=== PATIENT | male | born 1950 | race Caucasian/White ===

== ENCOUNTER 2016-04-23 16:58 | Observation (INO) | payer MEDICARE, BC ==
[~2016-04-23] VITALS: Ht 177.8 cm; Wt 78.6 kg
[2016-04-23 17:12] VITALS: BP 123/85; Ht 177.8 cm; Wt 78.6 kg
--- NOTE | 2016-04-23 17:25 | NUR ---
PATIENT ARRIVED FROM ADMISSIONS AMBULATING. TO 2116. ASSESSMENT DONE. PLACED ON TELEMETRY WITH RATE OF 140 AND UCAF. WILL CONTINUE TO MONITOR.
[2016-04-23] MEDS ORDERED: CARDIZEM CD240 MG (17:30)
[2016-04-23] MEDS ORDERED: PROTONIX40 MG PO (17:30)
[2016-04-23] MEDS ORDERED: LIPITOR40 MG PO (17:31)
[2016-04-23 17:52] LABS: BASOPHILS 0.2 % (0.0-2.0); EOSINOPHILS 1.2 % (0-7); HEMATOCRIT 47.6 % (42.0-54.0); HEMOGLOBIN 16.5 g/dL (13.5-17.5); IMMATURE GRANULOCYTES 0.3 % (0-5); LYMPHOCYTES 26.6 % (15-50); MCH 33.5 pg (26.0-34.0); MCHC 34.7 g/dL (31.0-37.0); MCV 96.7 fL (80.0-100.0); MEAN PLATELET VOLUME 9.1 fL (7.4-10.4); MONOCYTES 13.6 % (2-11); NEUTROPHILS 58.1 % (40-80); RBC 4.92 10x6/uL (4.20-6.10); RDW 13.1 % (11.5-14.5); WBC 9.5 10x3/uL (4.8-10.8)
[2016-04-23 17:53] LABS: PLATELET COUNT 287 10x3/uL (130-400)
[2016-04-23 18:31] LABS: CALC OSMOLALITY 282 mosm/kg (275-300); CALCIUM 9.6 mg/dL (8.5-10.1); CARBON DIOXIDE 28.2 mmol/L (21.0-32.0); CHLORIDE - SERUM 99 mmol/L (98-107); GLUCOSE 108 mg/dL (74-106); POTASSIUM - SERUM 3.3 mmol/L (3.5-5.1); SODIUM 141 mmol/L (136-145); THYROID STIMULATING HORMONE 4.28 uIU/mL (0.36-3.74); UREA NITROGEN 15 mg/dL (7-18); eGFR NON AFRICAN AMERICAN 79 mL/min (90-120)
--- NOTE | 2016-04-23 19:05 | NUR ---
INITIAL ROUNDS MADE. PT SITTING UP INBED WATCHING TV. IV SITED TO LEFT WRIST 22G [id number]. IVF INITIATED, ANTIBIOTIC HUNG, AND SOLUCORTEF GIVEN ORDERED. PT IS IN SR 71, PT REQUESTING NO CARDIZEM GTT UNLESS CONVERTS BACK TO AFIB.
[2016-04-23 20:00] VITALS: BP 136/97
[2016-04-24] VITALS: BP 117/71
--- NOTE | 2016-04-24 00:44 | NUR ---
[employer] AT BEDSIDE FOR VS, NEEDS ADDRESSED. CALL LIGHT IN REACH. WILL CONT TO MONITOR.
[2016-04-24 04:00] VITALS: BP 118/80
--- NOTE | 2016-04-24 05:11 | NUR ---
SITTING UP IN BED, NO NEEDS OR C/O. CONT TO MONITOR.
[2016-04-24 05:54] LABS: BASOPHILS 0.2 % (0.0-2.0); EOSINOPHILS 0 % (0-7); HEMATOCRIT 41.2 % (42.0-54.0); HEMOGLOBIN 13.9 g/dL (13.5-17.5); IMMATURE GRANULOCYTES 0.2 % (0-5); LYMPHOCYTES 26.5 % (15-50); MCH 32.6 pg (26.0-34.0); MCHC 33.7 g/dL (31.0-37.0); MCV 96.7 fL (80.0-100.0); MEAN PLATELET VOLUME 9.5 fL (7.4-10.4); NEUTROPHILS 64.1 % (40-80); PLATELET COUNT 258 10x3/uL (130-400); RBC 4.26 10x6/uL (4.20-6.10)
[2016-04-24 06:07] LABS: CALC OSMOLALITY 278 mosm/kg (275-300); CALCIUM 9.2 mg/dL (8.5-10.1); CARBON DIOXIDE 25.3 mmol/L (21.0-32.0); CHLORIDE - SERUM 101 mmol/L (98-107); GLUCOSE 148 mg/dL (74-106); SODIUM 137 mmol/L (136-145); UREA NITROGEN 18 mg/dL (7-18); eGFR NON AFRICAN AMERICAN 79 mL/min (90-120)
[2016-04-24 06:10] LABS: POTASSIUM - SERUM 4.6 mmol/L (3.5-5.1)
[2016-04-24 06:14] LABS: WBC 5.8 10x3/uL (4.8-10.8)
[2016-04-24 07:43] VITALS: BP 138/84
--- NOTE | 2016-04-24 09:34 | NUR ---
TELEMETRY SR. IV PATENT. CALL LIGHT IN REACH. WILL CONT. PLAN OF CARE.
[2016-04-24 11:17] VITALS: BP 124/72
[2016-04-24] MEDS ORDERED: CHERATUSSIN AC473 ML PO (13:07)
[2016-04-24] MEDS ORDERED: BETAPACE 120 M120 MG PO (13:08)
[2016-04-24] MEDS ORDERED: STERAPRED DS 1210 MG PO (13:08)
[2016-04-24] MEDS ORDERED: CEFZIL250 MG PO (13:08)
[2016-04-24] MEDS ORDERED: CARDIZEM CD240 MG PO (15:08)
--- NOTE | 2016-04-24 15:27 | NUR ---
NEW DISCHARGE MEDICATION PRESCRIPTIONS WERE PRINTED BUT NOT SIGNED BY DR. COX. I OFFERED TO CALL PRESCRIPTIONS TO PHARMACY BUT PATIENT WANTED TO TAKE PRESCRIPTIONS TO DR. CXO'S OFFICE FOR HIM TO SIGN AND GET A PRESCRIPTION FOR THE GUAF/CODEINE THAT DID NOT PRINT.
--- NOTE | 2016-04-24 15:30 | NUR ---
REFUSED SCD'S. UP AD SUSANNA
--- NOTE | 2016-04-24 15:33 | NUR ---
IV AND TELEMETRY DCD. DC PLANS GIVEN. UNDERSTANDING VOICED. ESCORTED TO CAR BY W/C.
--- NOTE | 2016-04-25 14:33 | CN ---
PATIENT NAME:KALYAN NAVAS MEDICAL RECORD: [id number] : 46 LOCATION:D. D.2117 ADMIT DATE: 04/23/16 ACCOUNT: [id number] CONSULTING PHYSICIAN: MARK ANTHONY HANSEN MD REFERRING PHYSICIAN: VLADIMIR COX DO DATE OF CONSULTATION: 04/24/2016 HISTORY OF PRESENT ILLNESS: A 65-year-old gentleman with a known cardiovascular disease, history of atrial fibrillation/flutter status post ablation, he has done extremely well; however, when I last saw him in the office, I increased his ____ responded nicely from that standpoint. He was seen with atrial flutter with 2:1 block based on clinic ____ admitted, was placed on sotalol and diltiazem promptly converted to normal sinus rhythm. I suspect the instigating factor is his current bronchitis. We were asked to see him concerning his cardiovascular status. PAST MEDICAL HISTORY: Includes: 1. History of dyslipidemia. 2. Atrial fibrillation status post ablation, pacemaker placement. 3. Gastroesophageal reflux disease. ALLERGIES: ASPIRIN. MEDICATIONS: Include Protonix 40 q. day, diltiazem 240 q. day, atorvastatin 40 q. day. SOCIAL HISTORY: , lives here in [place]. He is nonsmoker. He takes care of all his ADLs. REVIEW OF SYSTEMS: The patient reports easy bruising but reports no swollen glands. The patient reports no fever, no night sweats, no significant weight gain, no significant weight loss. No significant exercise tolerance. The patient reports no dry eyes, no irritation, no vision change. Patient reports no difficulty hearing and no ear pain. Patient reports no frequent nose bleeds or nose and sinus problems. Patient reports on arm pain on exertion. No shortness of breath while lying down. No history of heart murmur. Patient reports no cough, no wheezing or coughing up blood. Patient reports no abdominal pain, no vomiting. Normal appetite. No diarrhea and not vomiting blood. No nausea and no constipation. Patient reports no incontinence. No difficulty urinating. No hematuria. No increased frequency. Patient reports no muscle aches. No weakness, no arthralgias, no back pain. No swelling of the extremities. Patient reports no abnormal mole, no jaundice, no rashes. Reports no loss of consciousness. No weakness and no numbness. No seizures, dizziness, or headaches. The patient reports no depression, no sleep disturbance, feeling safe in a relationship and no alcohol abuse. Patient reports on fatigue. Reports no runny nose or sinus pressure. No itching, no hives, and no frequent sneezing. PHYSICAL EXAMINATION: GENERAL: Pleasant gentleman in no acute distress, appears stated age. VITAL SIGNS: Blood pressure 130/84, pulse currently 68. HEENT: Normocephalic, atraumatic. NECK: No JVD or bruit. HEART: Regular. LUNGS: Jordan clear. CONSULT REPORT [id number] BEST,KALYAN ABDOMEN: Soft, nontender. EXTREMITIES: Pulses 2+. No edema. NEUROLOGIC: Grossly intact. IMPRESSION: Atrial flutter, suspect the instigating factor was his underlying bronchitis, he has had no flutter before this, has done quite well. We will continue his Cardizem and Betapace for 6-8 weeks then hopefully we can taper off these agents using his pacemaker monitoring device. TRANSINT:[id number] Voice Confirmation ID: [id number] DOCUMENT ID: [id number] MARK ANTHONY HANSEN MD at 1433 CC: [id number] DICTATION DATE: 04/24/16 0858 DETAILER FURNITURE: 04/24/16 1529 DIS IN 04/24/16 [id number] [place] [address]
--- NOTE | 2016-04-30 06:56 | HP ---
PATIENT: KALYAN NAVAS MEDICAL RECORD: [id number] ACCOUNT: [id number] LOCATION:[address] : 48 ADMISSION DATE: 04/23/16 HISTORY AND PHYSICAL EXAMINATION HISTORY OF PRESENT ILLNESS: Kalyan is a 65-year-old gentleman, who presented to the office today with a complaint of cough, congestion going on for several days. He apparently has also been experiencing some palpitations and discomfort in his chest initially thought to be from coughing, but states his heart rate at home was very high. He apparently was over to the heart doctor's office today and was given a prescription for some sotalol to take in addition to his Cardizem. Here in the office, he was in AFib with RVR with rate of 147. We put him in the hospital for IV Cardizem, rate control and treatment of his bronchitis. PAST MEDICAL HISTORY: Paroxysmal AFib and atrial tachycardia. He has had multiple atrial pathway ablation by Dr. Rome, has received a [employer] kappa KDR dual chamber pacemaker in 2000, but exchange in 2009. He has previous illnesses that include hyperlipidemia, hypertension and back pain. FAMILY HISTORY: Positive for hypertension. SOCIAL HISTORY: He is , does not smoke tobacco. Drinks alcohol. No illicit drug use. HOME MEDICATIONS: Include Lipitor 80 mg daily, Cardizem-CD 240 mg daily, pantoprazole 40 mg daily, Ventolin HFA inhaler p.r.n. ALLERGIES: HE HAS A RASH WITH ASPIRIN, COUGH WITH LISINOPRIL AND HCTZ CAUSES CONSTIPATION AND MUSCLE CRAMPS. REVIEW OF SYSTEMS: CONSTITUTIONAL: He denies any fever. HEENT: Has had some sinus congestion and drainage. Denies ear pain or visual changes. Denies any dysphagia. CARDIOPULMONARY: He has had some palpitations and some chest discomfort. He has also experienced a lot of coughing with some occasional productive sputum. GASTROINTESTINAL: Denies any abdominal pain, nausea, vomiting or diarrhea. GENITOURINARY: No dysuria or hematuria. MUSCULOSKELETAL: Chronic neck and low back pain. No joint swelling or erythema. PHYSICAL EXAMINATION: VITAL SIGNS: Here, pulse was 143, blood pressure 120/78, respirations 16 and temperature 98.3. HEENT: Unremarkable. NECK: Supple. No JVD or adenopathy. HEART: Had an irregular regular rate and rhythm, pulse of 147. LUNGS: Had a few coarse rhonchi anteriorly that cleared with cough and few expiratory wheezes in the posterior lung barreto, expiratory. ABDOMEN: Soft, nontender and nondistended. Normoactive bowel sounds. EXTREMITIES: Had no edema, clubbing or cyanosis. DIAGNOSTIC DATA: Chest x-ray showed no infiltrate or effusion. EKG showed atrial fib with rapid ventricular response at 143. HISTORY AND PHYSICAL [id number] BEST,KALYAN PLAN: We are going to admit the patient, put him on a Cardizem drip. We will leave anticoagulation up to cardiology. Apparently, he never has been on anticoagulation for his AFib in the past. He states because of his aspirin allergy. He will be started on p.o. sotalol to take with the IV Cardizem, cardiology has been consulted for his bronchitis, IV Rocephin, IV Solu-Medrol, Xopenex updrafts, cough control with Tussionex, continue to follow clinically. TRANSINT:[id number] Voice Confirmation ID: [id number] DOCUMENT ID: [id number] VLADIMIR COX DO at 0656 CC: [id number] DICTATION DATE: 04/23/161718 TIGHTENING MACHINE OPERATOR: 04/23/162056 ADM IN [id number] [place] [address]
== END 2016-04-24 15:35 | disposition home or self-care (01) ==
LOC: D.M2 16:58 → OBSVTIME 16:58 → D.M2 16:58
PROVIDERS: ADMIT Family Medicine
DX: I48.0 Paroxysmal atrial fibrillation (principal); J20.9 Acute bronchitis, unspecified; I48.92 Unspecified atrial flutter; Z95.0 Presence of cardiac pacemaker; E78.5 Hyperlipidemia, unspecified; I10 Essential (primary) hypertension; K21.9 Gastro-esophageal reflux disease without esophagitis

== ENCOUNTER → 2016-12-11 11:02 | Outpatient (CLI) | payer MEDICARE, BC ==
[2016-04-23 17:12] VITALS: BMI 24.8
[~2016-12-11 11:02] MED LIST: BETAPACE 120 M120 MG PO; CARDIZEM CD240 MG; CARDIZEM CD240 MG PO; CEFZIL250 MG PO; CHERATUSSIN AC473 ML PO; LIPITOR40 MG PO; PROTONIX40 MG PO; STERAPRED DS 1210 MG PO
== END | disposition home or self-care (01) ==
LOC: D.CT 11:02
DX: M54.5 Low back pain (principal); M54.2 Cervicalgia

== ENCOUNTER → 2017-01-28 10:04 | Outpatient (CLI) | payer MEDICARE, BC ==
[2016-04-23 17:12] VITALS: BMI 24.8
== END | disposition home or self-care (01) ==
LOC: D.CT 10:04
DX: M25.552 Pain in left hip (principal)

== ENCOUNTER → 2017-08-20 09:03 | Outpatient (CLI) | payer MEDICARE, BC ==
[2016-04-23 17:12] VITALS: BMI 24.8
== END | disposition home or self-care (01) ==
LOC: D.SP 09:03 → D.RAD 10:00
DX: M25.552 Pain in left hip (principal); Z01.812 Encounter for preprocedural laboratory examination